=== PATIENT | female | born 1985 | race Two or more races ===

== ENCOUNTER 2024-08-03 18:33 | Emergency (ER) | payer MEDICAID, SELFPAY ==
[2024-08-03 18:34] VITALS: BMI 31.0
[2024-08-03 18:42] VITALS: BP 131/91; PULSE 94; RESP 19; TEMP 37.1; O2SAT 100
--- NOTE | 2024-08-03 18:52 | PD.EDDENTL ---
ED Dental RME/HPI General Chief complaint: Dental/Oral/Throat Stated complaint: SORETHROAT AND BACK PAIN FOR 2 WK Time Seen by Provider: 08/03/24 18:36 Arrival date/time: 08/03/24 18:33 39-year-old female reports with complaints of sore throat for several months. Patient has been evaluated by her primary care provider last year when this occurred no evidence of infection was noted. Patient states that she was also tested for thyroid disease those tests were negative. Patient states that she has been referred to ENT as her primary care provider cannot identify the cause but that appointment is not until August. Patient states over the last 2 weeks the pain has started to radiate to bilateral axillary's and to her back but no chest pain and no shortness of breath. Patient does report a history of acid reflux and episodic nausea which she also noted began at the time of the sore throat. Patient has not taken any medications for GERD. Patient also reports episodic nasal congestion but she does not relate it to the sore throat. Patient states that she has been taking [id number] medications with no improvement of symptoms Limitations: no limitations Related Data Home Medications ?Medication ?Instructions ?Recorded ?Confirmed calcium 600 mg (as 1 tab PO QDAY 06/20/20 10/12/21 carbonate)-vitamin D3 5 mcg (200 unit) tablet Previous Rx's ?Medication ?Instructions ?Recorded ibuprofen 600 mg tablet 600 mg PO TID PRN pain #30 tabs 05/31/23 phenazopyridine 100 mg tablet 100 mg PO TID PRN pain 6 doses #6 12/08/23 (Pyridium) tabs pantoprazole 40 mg tablet,delayed 40 mg PO QAM #30 tabs 08/03/24 release Allergies Allergy/AdvReac Type Severity Reaction Status Date / Time shrimp Allergy Rash Verified 08/03/24 18:37 Review of Systems Constitutional Constitutional: Denies chills, Denies fever(s) and Denies headache(s) ENT Ears, Nose, Mouth, and Throat: Denies dizziness, Denies headache(s), Denies sinus pressure, Reports sore throat and Denies tongue swelling Cardiovascular Cardiovascular: Denies chest pain and Denies dyspnea Respiratory Respiratory: Denies cough and Denies dyspnea Gastrointestinal Gastrointestinal: Reports heartburn, Reports nausea and Denies vomiting Musculoskeletal Musculoskeletal: Reports back pain and Denies myalgias Integumentary/Breasts Skin/Breast: Denies erythema and Denies rash Neurologic Neurologic: Denies dizziness and Denies headache(s) Hematologic/Lymphatic Hematologic/Lymphatic: Denies easy bleeding and Denies easy bruising Allergic/Immunologic Allergic/Immunologic: Denies tongue swelling Past Medical History Past Medical History NEUROLOGIC: Negative Neurological Disorders or Seizures CARDIAC: Negative Cardiac Disorders, Congestive Heart Failure, Edema, Cellulitis or Varicose Veins RESPIRATORY: Negative Chronic Obstructive Pulmonary Disease (COPD), Tuberculosis, Pulmonary Embolism or Sleep Apnea GASTROINTESTINAL: Negative Gastrointestinal Disorders or Hepatitis GENITOURINARY: Negative Genitourinary Disorders or Renal Disease REPRODUCTIVE: Positive Previous Pregnancies (x2) MUSCULOSKELETAL: Negative Musculoskeletal Disorders ENDOCRINE: Negative Endocrine Disorders, Diabetes Mellitus Type 1 or Diabetes Mellitus Type 2 HEMATOLOGIC: Positive Blood Disorders and Anemia (during ) OTHER HISTORY: Positive Chicken Pox; Negative Hospitalization, Autoimmune Disease, Shingles, Falls, Blood Transfusions, Blood Transfusion Reaction, Anesthesia Reactions, Chemotherapy, Radiation Therapy, Measles, Mumps or Cancer Family History FAMILY HISTORY: Positive Family Cardiac Disorders (MOTHER,FATHER (HTN,CHOLESTEROL)) and Family Surgery (SISTER,MOTHER); Negative Family Psychiatric Problems, Family Respiratory Disorders, Family Gastrointestinal Problems, Family Cancer or Family Anesthesia Reaction Surgical History SURGICAL: Negative Pacemaker Social History SMOKING STATUS: Never smoker ED Exam General Limitations: Present no limitations General appearance: Present alert and in no apparent distress Head Head exam: Present atraumatic Eye Eye exam: Present normal appearance, PERRL and EOMI ENT ENT exam: Present normal exam, normal oropharynx and mucous membranes moist Neck Neck exam: Present normal inspection, full ROM and trachea midline Chest Chest inspection: Present normal inspection and symmetric chest wall rise Respiratory Respiratory exam: Present normal lung sounds bilaterally Cardiovascular Cardiovascular exam: Present regular rate, normal rhythm and normal heart sounds Abdominal Exam Abdominal exam: Present soft and normal bowel sounds Extremities Exam Extremities exam: Present normal inspection and full ROM Back Exam Back exam: Present normal inspection and full ROM Neurological Exam Neurological exam: Present alert, oriented X3 and CN II-XII intact Psychiatric Psychiatric exam: Present normal affect and normal mood Skin Skin exam: Present warm, dry, intact and normal color Course Course Course Narrative: 39-year-old female reports with complaints of a sore throat for several months that has radiated to back episodically. She also complains of associated nausea and heartburn. Strep pharyngitis test is negative differential diagnosis includes viral infection versus allergic rhinitis versus reflux from GERD. I will treat the patient for GERD with PPIs she is advised on diet and exercise and to keep the appointment with ENT as GERD may not be the issue. She is advised that even if symptoms have resolved with the medications to still keep the appointment with the specialist for verification. Patient is stable nontoxic-appearing with stable vital signs and will be discharged according Quality Measures none Orders Category Date Time Status Strep A Rapid Stat Lab 08/03/24 18:55 Completed Vital Signs Vital signs: Vital Signs Temperature 98.8 F 08/03/24 18:42 Pulse Rate 94 08/03/24 18:42 Respiratory Rate 19 08/03/24 18:42 Blood Pressure 131/91 H 08/03/24 18:42 Pulse Oximetry (%) 100 08/03/24 18:42 Oxygen Delivery Method Room Air 08/03/24 18:42 Dental / Oral Patient data External records reviewed:: None Clinical information provided by:: patient Social determinants that could affect healthcare access:: none Patient has the following chronic illnesses:: GERD How is presenting disease/condition affected by chronic disease/condition?: caused by Evaluation data The following diagnostics were reviewed and interpreted by me:: lab results Lab and/or radiology exams considered but not ordered:: none Interpretation Summary: negative for strep Medications / Prescriptions Medications or Prescriptions considered but not ordered:: none Medication administrations:: none Consultations Consultation(s) initiated? (list below): No Diagnosis Most likely diagnosis given after review of the tests above:: Pharyngitis secondary to reflux Admission Indicated Admission indicated?: not indicated Admission Request Was there a request for admission?: No Disposition Plan Disposition Plan: Discharge Discharge Attestation Discharge Attestation: The patient and all family members were given an opportunity to ask questions and understood the discharge instructions. Discharge instructions specifically effects, indications for sooner follow up or return to the emergency department, and the expected course of current diagnosis. Patient condition: Stable Discharge Plan Plan Patient Disposition: HOME (Self Care) Prescriptions/Referrals Prescriptions/Med Rec: New pantoprazole 40 mg tablet,delayed release (DR/EC) 40 mg PO QAM Qty: 30 0RF No Action calcium carbonate-vitamin D3 600 mg(1,500mg) -200 unit Tablet 1 tab PO QDAY ibuprofen 600 mg tablet 600 mg PO TID PRN (Reason: pain) Qty: 30 0RF phenazopyridine [Pyridium] 100 mg tablet 100 mg PO TID PRN (Reason: pain) Qty: 6 0RF Problem List Clinical Impression: Pharyngitis, GERD with esophagitis Patient/Caregiver Discharge Instructions Discharge Activity: activity as tolerated Education Materials: Esophagitis Additional Instructions: Your test for infection is negative I suspect your symptoms are caused by acid reflux so take medication as directed hydrate well avoid caffeine spicy foods alcohol or foods made and heavy sauces and follow-up with your primary care provider in 2 weeks. Return to the emergency department if symptoms should worsen Print Language: Congolese Stand Alone Forms: Rachel Award Info., Patient Portal Info Letter
[2024-08-03 19:13] LABS: Strep A Rapid Negative (Negative)
== END 2024-08-03 20:03 | disposition home or self-care (01) ==
PROVIDERS: Physician Assistant; Emergency Provider Emergency Medicine; PCP Family Medicine
DX: J02.9 Acute pharyngitis, unspecified (principal); K21.00 Gastro-esophageal reflux disease with esophagitis, without bleeding
CPT/HCPCS: 87651; 99283

== ENCOUNTER → 2024-09-03 | Outpatient (CLI) | payer MEDICAID, SELFPAY ==
--- NOTE | 2024-09-03 09:00 | XR_ITS ---
Examination: Breast ultrasound complete, bilateral Date and time of exam: September 03, 2024 0928 hrs. Indications: Mammogram 07/19/2023 multiple bilateral circumscribed oval masses Technique: Real-time grayscale ultrasonographic imaging bilateral breasts, including all 4 quadrants as well as nipple retroareolar and axillary regions. Findings: Sonographic images right breast 1:00 oval mass circumscribed 10 x 10 mm 11:00 irregular nodule 23 x 17 mm 10:00 cyst 3 x 2 mm 11:00 irregular nodule 20 x 17 mm Sonographic images left breast 12:00 nodule irregular margins 13 x 13 mm 11:00 circumscribed nodule 16 x 13 mm 3:00 oval mass circumscribed 0.3 x 20 mm 9:00 oval mass circumscribed 4 x 4 millimeter 3:00 axillary nodule 17 x 13 mm, 8 x 7 mm Impression: BI-RADS code: 4: Suspicious for malignancy Suspicious masses right breast 11:00 position to nodules and 12:00 position left breast Biopsy of all 3 nodules is needed to exclude breast carcinoma These nodules are amenable to ultrasound-guided breast biopsy for diagnosis Also 6 month bilateral breast sonography follow-up is strongly recommended
== END | disposition home or self-care (01) ==
PROVIDERS: PCP Physician Assistant; Referring Provider Physician Assistant; Visit Provider Physician Assistant
DX: R92.8 Other abnormal and inconclusive findings on diagnostic imaging of breast (principal)
CPT/HCPCS: 76641

== ENCOUNTER → 2024-12-10 | Outpatient (CLI) | payer MEDICAID, SELFPAY ==
[2024-12-08 09:39] LABS: Basophils # (Auto) 0.1 Thou/mm3 (0.0-0.2); Basophils % (Auto) 1 % (0-2.5); Eosinophils # (Auto) 0.3 Thou/mm3 (0.0-0.5); Eosinophils % (Auto) 4 % (0-10); Hematocrit 35.9 % (36.0-46.0); Hemoglobin 11.8 g/dL (12.0-16.0); Immature Granulocytes % (Auto) 0 % (0-0); Immature Granulocytes Auto 0.01 Thou/mm3 (0.00-0.00); Lymphocytes # (Auto) 2.4 Thou/mm3 (1.0-4.8); Lymphocytes % (Auto) 38 % (10-50); Mean Corpuscular HGB Conc 32.9 g/dl (31.0-37.0); Mean Corpuscular Volume 85 fL (80-100); Monocytes # (Auto) 0.5 Thou/mm3 (0.0-0.8); Monocytes % (Auto) 7 % (0-12); Neutrophils % (Auto) 49 % (37-80); Nucleated Red Blood Cell % 0 /100 WBC (0); Platelet Count 285 Thou/mm3 (140-440); RDW Standard Deviation 41.2 fL (36.4-46.3); Red Blood Count 4.22 Miln/mm3 (4.00-5.20); White Blood Count 6.2 Thou/mm3 (3.6-11.0)
[2024-12-08 09:48] LABS: Partial Thromboplastin Time 27.6 Seconds (22.0-36.0); Prothrombin Time 10.9 Seconds (9.0-12.2)
[2024-12-08 09:52] LABS: HCG,Qualitative Serum Negative
--- NOTE | 2024-12-10 12:00 | XR_ITS ---
Examinations: Ultrasound-guided percutaneous breast biopsy, right breast 11:00 nodule Right breast sonography limited INDICATIONS: Right breast sonogram September 03, 2024 BI-RADS 4 suspicious mass 11:00 position right breast. Exam date and time: December 10, 2024 1211 hours. Informed consent provided. Technique: A timeout was completed verifying correct patient, procedure, site, positioning, and special equipment if applicable Informed consent provided. The patient was placed in a supine position for the breast biopsy. Sonographic images of the breast were performed for localization of the suspicious nodule The patient's breast was prepped and draped in sterile fashion. Maximum sterile barrier technique, hand hygiene, ultrasound sterile technique 1% lidocaine was used to anesthetize the skin and breast adjacent to the suspicious nodule. Utilizing ultrasonographic guidance, 8 core biopsies were obtained of the suspicious nodule utilizing an 18-gauge BioPince needle. The specimens appears satisfactory. US guided breast biopsy marker placement. Estimated blood loss 3 cc. The patient tolerated the procedure well and there were no complications. Impression: Successful ultrasound-guided percutaneous breast biopsy, right breast 11:00 nodule. Ultrasound guided breast biopsy marker placement.
--- NOTE | 2024-12-10 12:00 | XR_ITS ---
Examinations: Ultrasound-guided percutaneous breast biopsy, left breast 12:00 nodule Left breast sonography limited INDICATIONS: Left breast sonogram September 03, 2024 BI-RADS 4 suspicious nodule 12:00 position left breast. Exam date and time: December 10, 2024 1214 hours. Informed consent provided. Technique: A timeout was completed verifying correct patient, procedure, site, positioning, and special equipment if applicable Informed consent provided. The patient was placed in a supine position for the breast biopsy. Sonographic images of the breast were performed for localization of the suspicious nodule The patient's breast was prepped and draped in sterile fashion. Maximum sterile barrier technique, hand hygiene, ultrasound sterile technique 1% lidocaine was used to anesthetize the skin and breast adjacent to the suspicious nodule. Utilizing ultrasonographic guidance, 8 core biopsies were obtained of the suspicious nodule utilizing an 18-gauge BioPince needle. The specimens appears satisfactory. US guided breast biopsy marker placement. Estimated blood loss 3 cc. The patient tolerated the procedure well and there were no complications. Impression: Successful ultrasound-guided percutaneous breast biopsy, left breast 12:00 nodule. Ultrasound guided breast biopsy marker placement.
== END | disposition home or self-care (01) ==
LOC: SDIM 11:41
PROVIDERS: Radiology Diagnostic Radiology; PCP Physician Assistant; Referring Provider Physician Assistant; Visit Provider Physician Assistant
DX: D24.1 Benign neoplasm of right breast (principal); D24.2 Benign neoplasm of left breast; N60.12 Diffuse cystic mastopathy of left breast; N60.11 Diffuse cystic mastopathy of right breast; Z01.812 Encounter for preprocedural laboratory examination
CPT/HCPCS: 19083; 19084; 36415; 84703; 85025; 85610; 85730; A4648

== ENCOUNTER → 2025-02-25 | Outpatient (CLI) | payer MEDICAID, SELFPAY ==
--- NOTE | 2025-02-25 10:00 | XR_ITS ---
Examination: Breast ultrasound complete, bilateral Date and time of exam: February 25, 2025 1048 hrs. Indications: Suspicious nodule 12:00 position left breast biopsy ON 08/12/2024, nodule 13 x 13 mm on ultrasound 2024 Technique: Real-time grayscale ultrasonographic imaging bilateral breasts, including all 4 quadrants as well as nipple retroareolar and axillary regions. Findings: Sonographic images right breast 10:00 nodule circumscribed 11 x 9 mm 8:00 nodule irregular 23 x 13 mm 11:00 nodule is irregular margins 19 x 14 mm Retroareolar nodule lobular margins 15 x 12 mm Sonographic images left breast 12:00 nodule irregular 13 x 12 mm 1:00 nodule lobular margins 18 x 13 mm 2:00 nodule lobular margins 18 x 22 mm 3:00 nodule lobular margins 0.9 x 16 mm 3:00 nodule lobular margins 21 x 17 mm Impression: BI-RADS Category 4: Suspicious masses: Right breast 8:00 nodule with breast biopsy marker, 11:00 nodule most suspicious nodules Left breast 12:00 suspicious nodule, 3:00 suspicious nodule Biopsy of the above nodules is needed to exclude breast carcinoma Also consider MRI bilateral wrist follow-up pre and postcontrast
--- NOTE | 2025-02-25 11:00 | XR_ITS ---
Examination: Diagnostic digital mammography, bilateral Computer aided detection 3-D breast Tomosynthesis, bilateral Date and time of exam: 02/25/2025, 11:09 AM Comparisons: August 2008 through March 2024 Indications:Multiple bilateral benign biopsies Technique: Nonmagnified MLO, CC views of the breasts to been obtained, reconstructed from 3-D Tomosynthesis images. R2 computer aided detection program utilized for evaluation of suspicious masses and/or abnormal calcifications. 3-D Tomosynthesis images obtained. Findings: The breasts are heterogeneously dense, which may obscure small masses. Multiple stable oval circumscribed masses with postbiopsy marker clips. No evidence of suspicious masses or suspicious calcifications. Impression:
== END | disposition home or self-care (01) ==
PROVIDERS: PCP Physician Assistant; Referring Provider Physician Assistant; Visit Provider Physician Assistant
DX: R92.323 Mammographic fibroglandular density, bilateral breasts (principal); N63.13 Unspecified lump in the right breast, lower outer quadrant; N63.11 Unspecified lump in the right breast, upper outer quadrant; N63.25 Unspecified lump in the left breast, overlapping quadrants
CPT/HCPCS: 76641; 77062; 77066; G0279

== ENCOUNTER → 2025-06-16 | Outpatient (CLI) | payer MEDICAID, SELFPAY ==
[2025-06-15 12:17] LABS: Basophils # (Auto) 0.0 Thou/mm3 (0.0-0.2); Basophils % (Auto) 1 % (0-2.5); Eosinophils # (Auto) 0.2 Thou/mm3 (0.0-0.5); Eosinophils % (Auto) 4 % (0-10); Hematocrit 35.3 % (36.0-46.0); Hemoglobin 11.6 g/dL (12.0-16.0); Immature Granulocytes Auto 0.00 Thou/mm3 (0.00-0.00); Lymphocytes # (Auto) 1.9 Thou/mm3 (1.0-4.8); Lymphocytes % (Auto) 42 % (10-50); Mean Corpuscular HGB Conc 32.9 g/dl (31.0-37.0); Mean Corpuscular Hemoglobin 26.8 pg (25.0-35.0); Mean Corpuscular Volume 82 fL (80-100); Monocytes # (Auto) 0.3 Thou/mm3 (0.0-0.8); Monocytes % (Auto) 7 % (0-12); Neutrophils # (Auto) 2.2 Thou/mm3 (1.8-7.7); Neutrophils % (Auto) 47 % (37-80); Nucleated Red Blood Cell # 0.00 Thou/mm3 (0.00-0.00); Nucleated Red Blood Cell % 0 /100 WBC (0); Platelet Count 327 Thou/mm3 (140-440); RDW Standard Deviation 45.8 fL (36.4-46.3); Red Blood Count 4.33 Miln/mm3 (4.00-5.20); White Blood Count 4.6 Thou/mm3 (3.6-11.0)
[2025-06-15 12:37] LABS: HCG,Qualitative Serum Negative
[2025-06-15 13:31] LABS: INR 1.0 (0.9-1.3); Partial Thromboplastin Time 29.5 Seconds (22.0-36.0); Prothrombin Time 10.7 Seconds (9.0-12.2)
--- NOTE | 2025-06-16 08:30 | XR_ITS ---
Examinations: Ultrasound-guided percutaneous breast biopsy, left breast 12:00 nodule (Sonography limited INDICATIONS: BI-RADS 4 suspicious nodule 12 o'clock position left breast on ultrasound February 25, 2025. Exam date and time: June 16, 2025 0945 hours. Informed consent provided. Technique: A timeout was completed verifying correct patient, procedure, site, positioning, and special equipment if applicable Informed consent provided. The patient was placed in a supine position for the breast biopsy. Sonographic images of the breast were performed for localization of the suspicious nodule The patient's breast was prepped and draped in sterile fashion. Maximum sterile barrier technique, hand hygiene, ultrasound sterile technique 1% lidocaine was used to anesthetize the skin and breast adjacent to the suspicious nodule. Utilizing ultrasonographic guidance, 8 core biopsies were obtained of the suspicious nodule utilizing an 18-gauge BioPince needle. The specimens appears satisfactory. US guided breast biopsy marker placement. Estimated blood loss 3 cc. The patient tolerated the procedure well and there were no complications. Impression: Successful ultrasound-guided percutaneous breast biopsy, left breast 12:00 nodule. Ultrasound guided breast biopsy marker placement.
--- NOTE | 2025-06-16 08:30 | XR_ITS ---
Examinations: Ultrasound-guided percutaneous breast biopsy, left breast 3:00 nodule Upper sonography limited INDICATIONS: BI-RADS 4 suspicious nodule 3 o'clock position left breast on ultrasound February 26, 2024. Exam date and time: June 16, 2025, 0948 hours. Informed consent provided. Technique: A timeout was completed verifying correct patient, procedure, site, positioning, and special equipment if applicable Informed consent provided. The patient was placed in a supine position for the breast biopsy. Sonographic images of the breast were performed for localization of the suspicious nodule The patient's breast was prepped and draped in sterile fashion. Maximum sterile barrier technique, hand hygiene, ultrasound sterile technique 1% lidocaine was used to anesthetize the skin and breast adjacent to the suspicious nodule. Utilizing ultrasonographic guidance, 8 core biopsies were obtained of the suspicious nodule utilizing an 18-gauge BioPince needle. The specimens appears satisfactory. US guided breast biopsy marker placement. Estimated blood loss 3 cc. The patient tolerated the procedure well and there were no complications. Impression: Successful ultrasound-guided percutaneous breast biopsy, left breast 2:00 nodule. Ultrasound guided breast biopsy marker placement.
--- NOTE | 2025-06-16 08:30 | XR_ITS ---
Examinations: Ultrasound-guided percutaneous breast biopsy, right breast 8:00 nodule Rectal sonography limited INDICATIONS: BI-RADS 4 suspicious nodule right breast 8 o'clock position on ultrasound February 25, 2025. Exam date and time: June 16 2325, 0943 hours Informed consent provided. Technique: A timeout was completed verifying correct patient, procedure, site, positioning, and special equipment if applicable Informed consent provided. The patient was placed in a supine position for the breast biopsy. Sonographic images of the breast were performed for localization of the suspicious nodule The patient's breast was prepped and draped in sterile fashion. Maximum sterile barrier technique, hand hygiene, ultrasound sterile technique 1% lidocaine was used to anesthetize the skin and breast adjacent to the suspicious nodule. Utilizing ultrasonographic guidance, 8 core biopsies were obtained of the suspicious nodule utilizing an 18-gauge BioPince needle. The specimens appears satisfactory. . Estimated blood loss 3 cc. The patient tolerated the procedure well and there were no complications. Impression: Successful ultrasound-guided percutaneous breast biopsy, right breast 8:00 nodule.
== END | disposition home or self-care (01) ==
LOC: SDIM 08:10 → SIRX 08:10
PROVIDERS: Radiology Diagnostic Radiology; PCP Physician Assistant; Referring Provider Physician Assistant; Visit Provider Physician Assistant
DX: N63.13 Unspecified lump in the right breast, lower outer quadrant (principal); N63.21 Unspecified lump in the left breast, upper outer quadrant; D24.2 Benign neoplasm of left breast; D24.1 Benign neoplasm of right breast
CPT/HCPCS: 19083; 19084 ×2; 36415; 84703; 85025; 85610; 85730; A4648